=== PATIENT | female | born 1955 | race American Indian/Alaskan Native ===

== ENCOUNTER 2018-01-26 08:36 | Outpatient (CLI) | payer MEDICARE ==
--- NOTE | 2018-01-27 15:37 | Mammography Report ---
BILATERAL DIGITAL SCREENING MAMMOGRAM with CAD: 01/26/18 08:36:00 CLINICAL: Routine screening. COMPARISON:None available. FINDINGS: The breasts are mostly fatty. No mass, architectural distortion or suspicious calcifications. IMPRESSION: No mammographic evidence of malignancy. BI-RADS CATEGORY: 1 - - Negative RECOMMENDATION: Routine mammographic screening in one year. COMMENT: Patient follow-up letters are generated by our [employer] application.
== END 2018-01-26 08:37 | disposition home or self-care (01) ==
LOC: SPVWC 08:36
PROVIDERS: ATTEND Advanced Practice Midwife
DX: Z12.31 Encounter for screening mammogram for malignant neoplasm of breast (principal)
CPT/HCPCS: 77067

== ENCOUNTER 2019-02-02 08:17 | Outpatient (CLI) | payer MEDICARE ==
--- NOTE | 2019-02-02 14:16 | Mammography Report ---
BILATERAL DIGITAL SCREENING MAMMOGRAM with CAD: 02/02/19 08:17:00 CLINICAL: Routine screening. COMPARISON: 01/26/18 FINDINGS: The breasts are mostly fatty with a few bilateral scattered areas of fibroglandular density.No mass, architectural distortion or suspicious calcifications. IMPRESSION: No mammographic evidence of malignancy. BI-RADS CATEGORY: 1 -- Negative RECOMMENDATION: Routine mammographic screening in one year. COMMENT: Patient follow-up letters are generated by our [employer] application.
== END 2019-02-02 08:18 | disposition home or self-care (01) ==
LOC: SPVWC 08:17
PROVIDERS: ATTEND Advanced Practice Midwife
DX: Z12.31 Encounter for screening mammogram for malignant neoplasm of breast (principal)
CPT/HCPCS: 77067

== ENCOUNTER 2021-02-16 08:08 | Outpatient (CLI) | payer MEDICARE ==
--- NOTE | 2021-02-16 13:11 | Mammography Report ---
DIGITAL SCREENING MAMMOGRAM WITH CAD, 02/16/2021 CLINICAL INFORMATION / INDICATION: Routine screening mammography. TECHNIQUE: Digital bilateral 2D mammography was obtained in the craniocaudal and mediolateral obliqu e projections. This examination was interpreted with the benefit of Computer-Aided Detection analysis . COMPARISON: 01/26/2018 FINDINGS: Breast Density: There are scattered areas of fibroglandular density. No dominant mass, suspicious calcifications, or architectural distortion in the right breast. There is a new well-circumscribed 10 mm nodule in the left subareolar breast, anterior depth. This wi ll need further evaluation with ultrasound. Additionally, there are abnormal left axillary lymph nodes. At the time of patient's ultrasound exam, left axillary ultrasound should be performed. Additionally, information on patient's Covid vaccination history should be obtained. IMPRESSION: 1. New left breast 10 mm nodule, subareolar location. Recommend left breast ultrasound 2. Enlarged left axillary lymph nodes, nonspecific. If patient had recent Covid vaccination in the le ft arm, this certainly could account for this finding. At the time of ultrasound exam, left axillary ultrasound is suggested. Follow up recommendation: Ultrasound BI-RADS Category 0: Incomplete. Needs additional imaging evaluation and/or prior mammograms for uri anne. A "normal" or negative report should not discourage follow up or biopsy of a clinically significant f inding. A written summary of these findings will be mailed to the patient. The patient will be entered into a mammography reporting system which will generate a reminder letter for the patient's next appointmen t at the appropriate interval. The [employer] recommends yearly mammograms starting at age 40 and continuing as l mery as a woman is in good health. Breast MRI is recommended for women with an approximate 20-25% or greater lifetime risk of breast cancer, including women with a strong family history of breast or ova miguel ángel cancer or who have been treated for Hodgkin's disease. Signer Name: Coretta Sarmiento MD Signed: 02/16/2021 1:04 PM Workstation Name: [id number]
== END 2021-02-16 08:09 | disposition home or self-care (01) ==
LOC: SPVWC 08:08
PROVIDERS: ATTEND Advanced Practice Midwife
DX: Z12.31 Encounter for screening mammogram for malignant neoplasm of breast (principal); N63.20 Unspecified lump in the left breast, unspecified quadrant
CPT/HCPCS: 77067

== ENCOUNTER 2022-04-17 09:24 | Outpatient (CLI) | payer MEDICARE ==
--- NOTE | 2022-04-18 16:23 | Mammography Report ---
DIGITAL SCREENING MAMMOGRAM WITH CAD, 04/17/2022 CLINICAL INFORMATION / INDICATION: Routine screening mammography. SCREENING MAMMO WITH LIVAN Z12.31 TECHNIQUE: Digital bilateral 2D mammography was obtained in the craniocaudal and mediolateral obliqu e projections. This examination was interpreted with the benefit of Computer-Aided Detection analysis . COMPARISON: 02/16/2021, 02/02/2019 FINDINGS: Breast Density: There are scattered areas of fibroglandular density. No dominant mass, suspicious calcifications, or architectural distortion in either breast. IMPRESSION: No mammographic evidence of malignancy. Follow up recommendation: Routine yearly screening mammogram. BI-RADS Category 1: NEGATIVE A "normal" or negative report should not discourage follow up or biopsy of a clinically significant f inding. A written summary of these findings will be mailed to the patient. The patient will be entered into a mammography reporting system which will generate a reminder letter for the patient's next appointmen t at the appropriate interval. The [employer] recommends yearly mammograms starting at age 40 and continuing as l mery as a woman is in good health. Breast MRI is recommended for women with an approximate 20-25% or greater lifetime risk of breast cancer, including women with a strong family history of breast or ova miguel ángel cancer or who have been treated for Hodgkin's disease. Signer Name: Gurpreet Rodriguez MD Signed: 04/18/2022 4:19 PM Workstation Name: [id number]
== END 2022-04-17 09:25 | disposition home or self-care (01) ==
LOC: SPVWC 09:24
PROVIDERS: ATTEND Advanced Practice Midwife
DX: Z12.31 Encounter for screening mammogram for malignant neoplasm of breast (principal)
CPT/HCPCS: 77063; 77067